=== PATIENT | female | born 1955 | race Caucasian/White ===

== ENCOUNTER 2022-12-26 21:35 | Emergency (ER) | payer OTHER ==
[~2022-12-26] VITALS: Ht 162.6 cm; Wt 98.4 kg
[2022-12-26 21:47] VITALS: BP_SYST 138
--- NOTE | 2022-12-26 21:48 | NUR ---
Patient placed in ER BED 6 for evaluation. Bed in lowest position with siderails up. Instructed to notify ED staff for any changes in condition or worsening of symptoms. Patient verbalized understanding.
--- NOTE | 2022-12-26 21:50 | NUR ---
Dr. Zelaya at bedside examining the patient.
[2022-12-26] MEDS ORDERED: MORPHINE 4 MG INJ. 4 MG/ML VIAL IVP ONE (22:00)
[2022-12-26] MEDS ORDERED: NS 500 ML IV ONE (22:00)
[2022-12-26] MEDS ORDERED: ONDANSETRON HCL 4 MG/2 ML VIAL IVP ONE (22:00)
--- NOTE | 2022-12-26 22:05 | NUR ---
Patient taken to x-ray.
--- NOTE | 2022-12-26 22:18 | NUR ---
PORTABLE X-RAY AT BEDSIDE.
--- NOTE | 2022-12-26 22:44 | NUR ---
DR. CANO AT BEDSIDE DISCUSSING TEST RESULTS AND RE-EXAMINING THE PATIENT.
[2022-12-26] MEDS ORDERED: LIDO1ADH71 TD (22:52)
[2022-12-26] MEDS ORDERED: HYDR-3917 PO (22:52)
[2022-12-26] MEDS ORDERED: ACET-2634 PO (22:52)
[2022-12-26] MEDS ORDERED: HYDROcodone/ACETAMIN 5-325 MG TAB (NORCO/ VICODIN) PO ONE (23:00)
--- NOTE | 2022-12-26 23:37 | NUR ---
DR. CANO AT BEDSIDE RE-EXAMINING THE PATIENT.
--- NOTE | 2022-12-26 23:37 | NUR ---
PORTABLE X-RAY DONE AT BEDSIDE.
[2022-12-26 23:41] VITALS: BP_SYST 125
--- NOTE | 2022-12-26 23:43 | NUR ---
Patient given written and verbal discharge instructions and verbalizes understanding. ER MD discussed with patient the results and treatment provided. Patient in stable condition. ID arm band removed. IV catheter removed intact and dressing applied, no active bleeding. Rx of ACETAMINOPHEN, NORCO, LIDOCAINE given. Patient educated on pain management and to follow up with PMD. Pain Scale 0/10. Opportunity for questions provided and answered. Medication side effect fact sheet provided.
== END 2022-12-26 23:42 | disposition home or self-care (01) ==
LOC: SED 21:35
DX: S20.211A Contusion of right front wall of thorax, initial encounter (principal); S80.02XA Contusion of left knee, initial encounter; M25.551 Pain in right hip; Z79.899 Other long term (current) drug therapy; W18.40XA Slipping, tripping and stumbling without falling, unspecified, initial encounter; Y93.89 Activity, other specified; Y92.89 Other specified places as the place of occurrence of the external cause; Y99.8 Other external cause status
CPT/HCPCS: 99284; 96374; 96375; 71100; 72072; 72100; 73560; J2405; J2270

== ENCOUNTER 2023-09-23 12:09 | Emergency (ER) | payer OTHER ==
[~2023-09-23] VITALS: Ht 157.5 cm; Wt 94.3 kg
[~2023-09-23 12:09] MED LIST: ACET-2634 PO; HYDR-3927 PO; LIDO1ADH71 TD
[2023-09-23 12:10] VITALS: BP_SYST 145; PULSE 83; RESP 18; TEMP 97.3; O2SAT 97
[2023-09-23 13:06] LABS: BASOPHILS # (AUTO) 0.1 K/uL (0.0-0.2); BASOPHILS % (AUTO) 0.6 % (0.0-2.0); EOSINOPHILS # (AUTO) 0.2 K/uL (0.0-0.4); EOSINOPHILS % (AUTO) 2.2 % (0.0-4.0); HEMATOCRIT 40.1 % (36-48); HEMOGLOBIN 12.9 g/dL (12.0-16.0); LYMPHOCYTES # (AUTO) 1.8 K/uL (1.0-5.5); LYMPHOCYTES % (AUTO) 19.1 % (20.5-51.5); MEAN CORPUSCULAR HEMOGLOBIN 27 pg (27-31); MEAN CORPUSCULAR HGB CONC 32 % (32-36); MEAN CORPUSCULAR VOLUME 82 fL (79.0-98.0); MONOCYTES # (AUTO) 0.5 K/uL (0.0-1.0); MONOCYTES % (AUTO) 5.2 % (1.7-9.3); NEUTROPHILS # (AUTO) 6.7 K/uL (1.8-7.7); NEUTROPHILS % (AUTO) 72.9 % (40.0-70.0); PLATELET COUNT (AUTO) 297 K/uL (130-430); RED BLOOD CELL COUNT(AUTO) 4.87 MIL/uL (4.2-6.2); RED CELL DISTRIBUTION WIDTH 15.7 % (9.0-15.0); WHITE BLOOD COUNT (AUTO) 9.2 K/uL (4.8-10.8)
[2023-09-23] MEDS: HYDROcodone/ACETAMIN 5-325 MG TAB (NORCO/ VICODIN) PO ONE (13:09)
[2023-09-23 13:13] LABS: CALCIUM 9.4 mg/dL (8.4-11.0); CREATININE 0.82 mg/dL (0.55-1.30); POTASSIUM 4.1 mmol/L (3.5-5.1)
[2023-09-23] MEDS ORDERED: MELO-89 PO (13:42)
[2023-09-23] MEDS ORDERED: HYDR-3917 PO (13:42)
[2023-09-23 13:58] VITALS: BP_SYST 145; PULSE 83; RESP 18; TEMP 97.3; O2SAT 97
== END 2023-09-23 13:55 | disposition home or self-care (01) ==
LOC: SED 12:09
DX: M25.551 Pain in right hip (principal); Z79.899 Other long term (current) drug therapy
CPT/HCPCS: 36415; 73502; 73552; 80048; 85025; 85379; 99284